=== PATIENT | male | born 1955 | race Caucasian/White ===

== ENCOUNTER 2018-03-21 17:29 | Inpatient (IN) | payer MEDICAID, OTHER ==
[2018-03-21] MEDS ORDERED: ALBUTEROL 3 ML DEYVIAL IH ONE ×3 (17:38→18:26)
[2018-03-21] MEDS ORDERED: methylPREDNISolone SOD SUCC 125 MG/2 ML VIAL IVP ONE (17:38)
--- NOTE | 2018-03-21 17:38 | EDPHY ---
H & P Time Seen by Provider: 03/21/18 17:36 HPI/ROS: CHIEF COMPLAINT: Shortness of breath HISTORY OF PRESENT ILLNESS: History of COPD and bypass surgery and artificial valve on warfarin comes in with a chest cold which then became much more short of breath over the past 2 days. Associated with tightness in his bilateral lower chest and a cough which is nonproductive. Symptoms severe and he was 70% oxygen saturation by [place] Now is 98% on 4 L nasal cannula. He only uses oxygen at home when he needs it but not all the time. Today symptoms started worsening when he was mowing the lawn this afternoon. REVIEW OF SYSTEMS: Eye: no change in vision ENT: no sore throat, little bit of left jaw pain Cardiac: HPI no palpitations or syncope Pulmonary: HPI Abdomen: no vomiting, diarrhea, abdominal pain Musculoskeletal: no back pain Skin: no rash Neuro: no headache Constitutional: no fever : no urinary symptoms A comprehensive 10 point review of systems is otherwise negative aside from elements mentioned in the history of present illness. PAST MEDICAL HISTORY: Includes COPD, cardiac bypass with valve replacement on warfarin, pacemaker Social history: [place] patient, Dr. Lexis mata General Appearance: Alert and conversant, cooperative. Eyes: No scleral icterus. ENT, Mouth: Normal mucous membranes. No dental tenderness. Respiratory: Bilateral expiratory wheezing with prolonged expiratory phase, speaks in full sentences. Cardiovascular: Regular rate and rhythm. Valve sound heard. Gastrointestinal: Abdomen is soft and non tender. Neurological: Alert, face symmetric, normal motor and sensory in extremities. Skin: Warm and dry, no rashes. Musculoskeletal: No peripheral edema. Psychiatric: Not agitated. Emergency Department course/MDM: Duoneb given by EMS; additional albuterol neb and 125 mg IV Solu-Medrol. Chest x-ray does not show pneumonia. EKG does not show ischemia. INR is elevated and I think pulmonary embolism would therefore be unlikely. 1818: Odilia from [place] [facility] admit at [facility] no transfer. Admit [facility] for acute COPD exacerbation with hypoxemia. 182: Transient hypotension which resolved spontaneously. Re-examined at this time is in good spirits and feels better. Still very wheezy. Additional albuterol neb. Saturation in the 90s on nasal cannula supplemental oxygen. Constitutional: Initial Vital Signs Temperature (C) 37.1 C 03/21/18 17:29 Heart Rate 79 03/21/18 17:29 Respiratory Rate 30 H 03/21/18 17:29 Blood Pressure 107/67 03/21/18 17:29 O2 Sat (%) 78 L 03/21/18 17:29 O2 Delivery Mode Nasal Cannula O2 (L/minute) 3 Allergies/Adverse Reactions: No Known Allergies Allergy (Unverified 03/21/18 18:03) Home Medications: Medication Instructions Recorded Atorvastatin Calcium [Lipitor 40 40 mg PO HS 03/21/18 mg (*)] Docusate Sodium [Colace 100 MG (*)] 100 mg PO HS 03/21/18 Dofetilide [Tikosyn 0.5 MG (*)] 0.5 mg PO BID 03/21/18 Furosemide [Lasix 40 MG (*)] 80 mg PO BIDDIUR 03/21/18 Metoprolol Succinate Xr [Toprol Xl 25 mg PO HS 03/21/18 25 mg (*)] Mometasone/Formoterol [Dulera 100 13 gm IH BID 03/21/18 Mcg/5 Mcg Inhaler] Multivitamins [Multivitamin (*)] 1 each PO HS 03/21/18 Omeprazole 20 mg PO HS 03/21/18 Potassium Chloride [Klor-Con 10] 20 meq PO BIDDIUR 03/21/18 Tiotropium Inhaler [Spiriva 1 inh IH DAILY 03/21/18 Inhaler] Warfarin Sodium [Coumadin 2.5MG 3.75 mg PO MOTUTHFRSA@03/21/18 (*)] Warfarin Sodium [Coumadin 2.5MG 5 mg PO SUWE@03/21/18 (*)] Medical Decision Making - Diagnostics EKG Interpretation: 12-lead EKG interpreted by me; official reading is in trace master. My interpretation is sinus rhythm with intraventricular conduction delay and late anterior RS transition. Imaging Results: Imaging Impressions Chest X-Ray 03/21/18 17:38 Impression: Chronic congestive heart failure with underlying emphysema.. Imaging: I viewed and interpreted images myself Differential Diagnosis: Differential diagnosis considered for shortness of breath including but not limited to pulmonary infectious process, COPD, asthma, pulmonary embolus and congestive heart failure. Consult/Admit Bed Type: [facility] 1821 Critical Care Time: Critical care time spent by me, Dr. Salgado, exclusively with the care of this patient was 30 minutes, exclusive of PA or SENIOR PARTNER time and exclusive of separate procedures. The organ system at risk was pulmonary and I ordered serial examinations, nebulizer medications, IV steroids, supplemental oxygen to stabilize the patient and prevent worsening of the patient's condition. - Data Points Laboratory Results: Laboratory Results 03/21/18 17:35 03/21/18 17:35 03/21/18 03/21/18 03/21/18 17:46 17:35 17:35 WBC RBC Hgb Hct MCV MCH MCHC RDW Plt Count MPV Neut % (Auto) Lymph % (Auto) Baker % (Auto) Eos % (Auto) Baso % (Auto) Nucleat RBC Rel Count Absolute Neuts (auto) Absolute Lymphs (auto) Absolute Monos (auto) Absolute Eos (auto) Absolute Basos (auto) Absolute Nucleated RBC Immature Gran % Immature Gran # PT 29.0 SEC H SEC (12.0-15.0) INR 2.75 H (0.83-1.16) APTT 43.5 SEC H SEC (23.0-38.0) Sodium 132 mEq/L L mEq/L (135-145) Potassium 4.2 mEq/L mEq/L (3.3-5.0) Chloride 91 mEq/L L mEq/L (97-110) Carbon Dioxide 29 mEq/l mEq/l (22-31) Anion Gap 12 mEq/L mEq/L (8-16) BUN 29 mg/dL H mg/dL (7-23) Creatinine 1.0 mg/dL mg/dL (0.7-1.3) Estimated GFR > 60 Glucose 84 mg/dL mg/dL (70-100) Calcium 9.0 mg/dL mg/dL (8.5-10.4) POC Troponin I 0.02 ng/mL ng/mL (0.00-0.08) 03/21/18 17:35 WBC 11.43 10^3/uL H 10^3/uL (3.80-9.50) RBC 4.71 10^6/uL 10^6/uL (4.40-6.38) Hgb 16.0 g/dL g/dL (13.7-17.5) Hct 45.8 % % (40.0-51.0) MCV 97.2 fL fL (81.5-99.8) MCH 34.0 pg pg (27.9-34.1) MCHC 34.9 g/dL g/dL (32.4-36.7) RDW 14.0 % % (11.5-15.2) Plt Count 168 10^3/uL 10^3/uL (150-400) MPV 10.2 fL fL (8.7-11.7) Neut % (Auto) 75.9 % H % (39.3-74.2) Lymph % (Auto) 12.9 % L % (15.0-45.0) Baker % (Auto) 10.1 % % (4.5-13.0) Eos % (Auto) 0.4 % L % (0.6-7.6) Baso % (Auto) 0.4 % % (0.3-1.7) Nucleat RBC Rel Count 0.0 % % (0.0-0.2) Absolute Neuts (auto) 8.66 10^3/uL H 10^3/uL (1.70-6.50) Absolute Lymphs (auto) 1.48 10^3/uL 10^3/uL (1.00-3.00) Absolute Monos (auto) 1.15 10^3/uL H 10^3/uL (0.30-0.80) Absolute Eos (auto) 0.05 10^3/uL 10^3/uL (0.03-0.40) Absolute Basos (auto) 0.05 10^3/uL 10^3/uL (0.02-0.10) Absolute Nucleated RBC 0.00 10^3/uL 10^3/uL (0-0.01) Immature Gran % 0.3 % % (0.0-1.1) Immature Gran # 0.04 10^3/uL 10^3/uL (0.00-0.10) PT INR APTT Sodium Potassium Chloride Carbon Dioxide Anion Gap BUN Creatinine Estimated GFR Glucose Calcium POC Troponin I Medications Given: Discontinued Medications Albuterol (Proventil Neb) 3 ml IH EDNOW ONE Stop: 03/21/18 17:39 Last Admin: 03/21/18 17:59 Dose: 3 ml Albuterol (Proventil Neb) 3 ml IH EDNOW ONE Stop: 03/21/18 18:27 Last Admin: 03/21/18 18:29 Dose: 3 ml Albuterol (Proventil Neb) 3 ml IH EDNOW ONE Stop: 03/21/18 18:26 Last Admin: 03/21/18 18:30 Dose: Not Given Methylprednisolone Sodium Succinate (Solu-Medrol) 125 mg IVP EDNOW ONE Stop: 03/21/18 17:39 Last Admin: 03/21/18 17:59 Dose: 125 mg Point of Care Test Results: Chemistry 03/21/18 17:46 POC Troponin I 0.02 ng/mL ng/mL (0.00-0.08) Departure - Departure Disposition: [facility] Inpatient Acute Clinical Impression: Chronic obstructive pulmonary disease with acute exacerbation Condition: Fair
[2018-03-21 17:55] LABS: PLATELET COUNT 168 10^3/uL (150-400)
[2018-03-21 18:05] LABS: INR 2.75 (0.83-1.16)
--- NOTE | 2018-03-21 18:14 | CPEKG ---
Heart Rate: 70 RR Interval: 857 P-R Interval: 180 QRSD Interval: 140 QT Interval: 436 QTC Interval: 471 QRS Ellenton: -64 T Wave Ellenton: 64 EKG Severity - ABNORMAL ECG - EKG Impression: SINUS RHYTHM EKG Impression: NONSPECIFIC IVCD WITH LAD EKG Impression: CONSIDER ANTERIOR INFARCT Electronically Signed By: Mark Salgado 21-Mar-2018 18:14:12
[2018-03-21] MEDS ORDERED: PROMETHAZINE HCL 25 MG/ML INJ IVP PRN (18:29)
[2018-03-21] MEDS ORDERED: ACETAMINOPHEN 325 MG TAB PO PRN (18:29)
[2018-03-21] MEDS ORDERED: ALBUTEROL 3 ML DEYVIAL IH PRN (18:29)
[2018-03-21] MEDS ORDERED: ONDANSETRON DISINTEGRATING 4 MG TAB PO PRN (18:29)
[2018-03-21] MEDS ORDERED: ONDANSETRON 4 MG/2 ML VIAL IVP PRN (18:29)
[2018-03-21] MEDS ORDERED: HYDROCODONE/APAP 5/325 TAB PO PRN (18:29)
[2018-03-21] MEDS ORDERED: oxyCODONE IR 5 MG TAB PO PRN (18:29)
[2018-03-21] MEDS ORDERED: WARFARIN SODIUM 2.5 MG TAB PO SCH ×2 (21:00→22:15)
[2018-03-21] MEDS: IPRATROPIUM/ALBUTEROL 3 ML DEYVIAL IH SCH (21:11)
[2018-03-21] MEDS ORDERED: DOCUSATE SODIUM 100 MG CAP PO SCH (21:15)
[2018-03-21] MEDS ORDERED: PANTOPRAZOLE SODIUM 40 MG TAB PO SCH (21:15)
[2018-03-21] MEDS ORDERED: METOPROLOL SUCCINATE XR 25 MG TAB PO SCH (21:15)
[2018-03-21] MEDS ORDERED: ATORVASTATIN CALCIUM 40 MG TAB PO SCH (21:15)
[2018-03-21] MEDS ORDERED: guaiFENesin/CODEINE PHOS 10 ML UDCUP PO PRN (21:22)
[2018-03-21] MEDS ORDERED: WARFARIN SODIUM 5 MG TAB PO SCH (21:45)
[2018-03-21] MEDS: AZITHROMYCIN IV 500 MG in NS 250 ML IV SCH (22:13)
[2018-03-21] MEDS: METOPROLOL SUCCINATE XR 25 MG TAB PO SCH (22:26)
[2018-03-21] MEDS: ATORVASTATIN CALCIUM 40 MG TAB PO SCH (22:27)
[2018-03-21] MEDS: OMEPRAZOLE 20 MG PO SCH (22:28)
[2018-03-21] MEDS: DOCUSATE SODIUM 250 MG PO SCH (22:29)
[2018-03-21] MEDS: DOFETILIDE 0.5 MG CAP PO SCH (22:29)
--- NOTE | 2018-03-21 22:35 | GHP ---
[f rep st] HISTORY AND PHYSICAL DATE OF ADMISSION: 03/21/2018 CHIEF COMPLAINT: Shortness of breath and cough. 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 He notes this initially started with what he thought was a head cold. He has had chills, but no fevers. He h as had some sputum production, but it has largely been clear or white in color. He notes that he has been coughing so hard that he has abdominal pain now with coughing. He was around someone sick with pneumonia recently. He denies any chest pain. He denies any increased swelling in his lower extrem ities. He is followed by Cardiology at [facility]. PAST MEDICAL HISTORY: Includes: 1. Severe COPD. 2. Chronic hypoxic respiratory failure, on 2 L of oxygen at night. 3. 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 4. Valvular heart disease with history of congenitally abnormal aortic valve, status post replacemen t and revision with a mechanical valve. 5. Atrial fib/flutter. 6. Alcohol abuse, reportedly in remission. 7. Chronic kidney disease, stage 3. 8. William esophagus. PAST SURGICAL HISTORY: Includes: 1. Atrial valve replacement and revision. 2. Permanent pacemaker/AICD placement. 3. Inguinal hernia repair. 4. Tonsillectomy. FAMILY HISTORY: Negative for any coronary disease. SOCIAL HISTORY: The patient has a 40+ pack-year smoking history, but states he quit smoking 2 months ago. Previously heavy alcohol abuse, but also states he has been off alcohol for a couple of years. He is currently unemployed. REVIEW OF SYSTEMS: A 10-point review of systems obtained and negative except as per HPI. HOME MEDICATIONS: Include: 1. Spiriva. 2. Atorvastatin. 3. Multivitamin. 4. Metoprolol. 5. Docusate. 6. Omeprazole. 7. Tikosyn. 8. Lasix. 9. Potassium. 10. Warfarin. 11. Dulera. ALLERGIES: No known drug allergies. PHYSICAL EXAM: VITAL SIGNS: BP 97/55, heart rate 70, respiratory rate 17, O2 sats 91% on 3 L, tempe rature is 36.9. GENERAL APPEARANCE: This is a chronically ill-appearing male. He is awake and aler t. He is in no acute distress. EYES: Anicteric. HENT: Oropharynx clear. CARDIOVASCULAR: Mechan ical heart sounds present, otherwise unremarkable. PULMONARY: Decreased breath sounds throughout. There is scattered expiratory wheeze. ABDOMEN: Soft, nontender, nondistended. EXTREMITIES: No clu bbing, cyanosis, or edema. SKIN: Warm, dry, well perfused. NEURO/PSYCH: Oriented and appropriate, pleasant. CLINICAL DATA: Labs reviewed. Notable for a sodium of 132, creatinine is 1.0. Troponin is 0.02. I NR is 2.75. White blood cell count of 11.4. EKG, personally reviewed and interpreted, shows sinus rhythm. There is a nonspecific interventricula r conduction delay with LAD. Chest x-ray, personally reviewed and interpreted, shows chronic CHF as well as emphysema. No focal i nfiltrate. ASSESSMENT/PLAN: This is a 63-year-old man, past medical history of chronic obstructive pulmonary di sease, congestive heart failure, valvular heart disease, atrial fibrillation/flutter presenting with shortness of breath, cough, and wheeze most consistent with acute exacerbation of chronic obstructive pulmonary disease. 1. Acute chronic obstructive pulmonary disease exacerbation. Patient has been given IV steroids in the emergency department. He has been started on scheduled DuoNebs and albuterol nebulizers p.r.n. We will transition to oral prednisone in the morning. We will start azithromycin as well and obtain a respiratory viral PCR panel as well. 2. Kgjnu-yh-bgmdhoa hypoxic respiratory failure at baseline. Utilizing oxygen only at night, natacha hughes requiring 3 L to maintain O2 sats in the mid 90s. He was 78% on room air on arrival. Suspect th is is secondary to above but, given his heart history, difficult to exclude contribution of congestiv e heart failure. In review of his records on [facility], it does not appear that he has had an echocardi ogram for at least 1 year, so will obtain an echocardiogram in the morning. His last ejection fracti on noted to be 30% to 35% with his aortic valve appearing to function well at that time. 3. Atrial fibrillation/flutter. We will continue his outpatient medications, including Tikosyn and metoprolol. We will monitor on telemetry overnight. 4. Valvular heart disease with mechanical aortic valve and history of congenital aortic valve diseas e. He is on warfarin with goal INR 2.5 to 3.5 and currently in therapeutic range. We will ask pharm acy to manage warfarin while inhouse, given addition of medications which could affect his INR. 5. Chronic systolic heart failure. This is a mixed ischemic and nonischemic process with a dilated cardiomyopathy present as well as ischemic cardiomyopathy and most recent ejection fraction of 30% to 35%. He does not appear grossly volume overloaded at this time; however, with increased O2 requirem ents and congestive heart failure noted on chest x-ray, this certainly may be contributing. Again, w e will obtain an echocardiogram in the morning for further evaluation. We will continue his home dos e of Lasix which is 80 b.i.d. for the time being. 6. History of William esophagus. We will continue his proton pump inhibitor. DISPOSITION: Inpatient status. Given complex medical decision making and multiple active issues, azul spect he will need greater than 48-hour stay for evaluation and management of above. Patient is new to my care. Old records reviewed, including records found on [facility]. Care plan revie wed with ER physician, including plans for treatment of COPD exacerbation. /[id number]/MODL
[2018-03-22 04:59] LABS: INR 3.6 (0.83-1.16); PROTIME(PATIENT) 35.6 SEC (12.0-15.0)
[2018-03-22] MEDS: IPRATROPIUM/ALBUTEROL 3 ML DEYVIAL IH SCH ×4 (05:51→21:41)
[2018-03-22] MEDS: FUROSEMIDE 40 MG TAB PO SCH ×2 (08:04→15:05)
[2018-03-22] MEDS: guaiFENesin 600 MG TAB.ER PO SCH ×2 (08:04→20:43)
[2018-03-22] MEDS: POTASSIUM CL 10 MEQ TAB PO SCH ×2 (08:05→15:06)
[2018-03-22] MEDS: DOFETILIDE 0.5 MG CAP PO SCH ×2 (08:06→20:45)
[2018-03-22] MEDS: predniSONE 20 MG TAB PO SCH (08:14)
[2018-03-22] MEDS: OMEPRAZOLE 20 MG PO SCH (08:17)
[2018-03-22] MEDS ORDERED: ENOXAPARIN 40 MG/0.4 ML SYR SC SCH (09:00)
[2018-03-22] MEDS ORDERED: PERFLUTREN LIPID MICROSPHERES 1.1 MG/ML VIAL IV ONE (09:02)
--- NOTE | 2018-03-22 13:04 | ECHO ---
[email or web address] [address] [address] Main: [phone] Fax: [email or web address] Echocardiogram Name: GILDA CLEMENS MR#: [id number] Study Date: 03/22/2018 Study Time: 08:41 AM Date of : 1955 Age: 63 year(s) Height: ( ) Weight: ( ) BSA: Gender: Male Examination: Echo Indication: HX OF CHF, HYPOXIC RESPIRATORY FAILURE Image Quality: Adequate Contrast: Requested by: Marques Kingston BP: / Heart Rate: Rhythm: Indication: HX OF CHF, HYPOXIC RESPIRATORY FAILURE Procedure Staff Exhibit Specialist: Joseline Hale [facility] Reading Physician: Porfirio Shea MD Requesting Provider: Conclusions: Normal size left ventricle. No LV hypertrophy. The ejection fraction is visually estimated to be 45 %. Finlayson appears hypokinetic. Definity was used. There appears to be swirling of contrast in apex indicating slow movement of blood. Normal size right ventricle. Left atrial enlargement. Moderate to severe mitral regurgitation. The aortic valve is a mechanical prosthesis.. Normal functioning aortic valve prosthesis. The prosthetic aortic valve is normal. Mild prosthesis regurgitation. Moderate tricuspid regurgitation is present. The pulmonary artery pressure is mildly increased. There is no pulmonic regurgitation seen. Normal size ascending aorta measuring 2.6 cm. Measurements: Chambers Valvular Assessment AV/MV Valvular Assessment TV/PV Normal Normal Normal Name Value Range Name Value Range Name Value Range Ao Susannah (2D): 2.9 cm (1.4 cm-2.6 AV Vmax: 2.30 m/s (1 m/s-1.7 TR Vmax: 3.00 mm/s ( - ) cm) m/s) TR PGmax: 36 mmHg ( - ) IVSd (2D): 1.1 cm (0.6 cm-1.1 AV maxP mmHg ( - ) syst. PAP: 41 mmHg ( - ) cm) AV meanP mmHg ( - ) PV Vmax: 0.91 m/s (0.6 m/s-0.9 LVDd (2D): 5.8 cm (4.2 cm-5.9 VANDA (VTI): 1.0 cm ( - ) m/s) cm) MV E Vmax: 1.40 m/s ( - ) PV PGmax: 3 mmHg ( - ) LVDs (2D): 4.4 cm (2.1 cm-4 MV A Vmax: 0.86 m/s ( - ) cm) MV E/A: 1.63 ( - ) Patient: GILDA CLEMENS Study Date: 03/22/2018 Page 1 of 3 08:41 AM LVPWd (2D): 1.0 cm (0.6 cm-1 MV meanP mmHg ( - ) cm) MV PHT: 0.057 s ( - ) LVOTd 1.8 cm 1.8 cm mm MVA (Vmax): 0.3 m/s ( - ) LVEF (2D): 49 (>=54 %) MVA (PHT): 3.9 s ( - ) Visual EF: 45 % RVDd(2D): 3.4 cm (1.9 cm-3.8 cmmm) Continued Measurements: Chambers Valvular Assessment AV/MV Valvular Assessment TV/PV Name Value Name Value Name Value LADs: 5.3 cm MV DecTime: 190 m/s CVP (est.): 5 mmHg LADs Lon.1 cm MV E' Septal: 0.07 m/s LA Area: 27.3 cm2 MV E/E' Septal: 20.50 LA Volume: 108 ml MV E/E' Lateral: 13.60 RA Area: 27.6 cm2 MV VTI: 139.00 cm MR PISA radius: 13 mm Additional Vessels Name Value Ao Ascendin.6 cm Inferior Vena Cava: 2.6 cm Findings: Left Ventricle: Normal size left ventricle. No LV hypertrophy. The ejection fraction is visually estimated to be 45 %. No regional wall motion abnormality. Normal diastolic LV function. Finlayson appears hypokinetic. Definity was used. There appears to be swirling of contrast in apex indicating slow movement of blood. Right Ventricle: Normal size right ventricle. Normal RV function. There is a pacemaker lead noted in the right ventricle. Left Atrium: Left atrial enlargement. Right Atrium: The right atrium is normal in size. Mitral Valve: The mitral valve is normal in appearance and function. Moderate to severe mitral regurgitation. No mitral stenosis is present. Aortic Valve: The aortic valve is a mechanical prosthesis.. Normal functioning aortic valve prosthesis. The prosthetic aortic valve is normal. Mild prosthesis regurgitation. Tricuspid Valve: The tricuspid valve is normal in appearance and function. Moderate tricuspid regurgitation is present. The pulmonary artery pressure is mildly increased. Pulmonic Valve: The pulmonic valve is normal in appearance and function. There is no pulmonic regurgitation seen. Aorta: The aorta is normal. Normal size aortic root measuring 2.9 cm. Normal size ascending aorta measuring 2.6 cm. IVC: The IVC is dilated. Pericardium: No pericardial effusion. No pleural effusion. (No Signature Object) Patient: GILDA CLEMENS Study Date: 03/22/2018 Page 2 of 3 08:41 AM Patient: GILDA CLEMENS Study Date: 03/22/2018 Page 3 of 3 08:41 AM [id number]
--- NOTE | 2018-03-22 13:37 | ASMTCMCOM ---
CM Note CM Note Notes: Pt lives alone in [place], sister coming today to visit. DC needs uncertain, CM w/f. DC Plan: TBD Date Signed: 03/22/2018 01:36 PM Electronically Signed By:Donna Gonzáles RN
--- NOTE | 2018-03-22 13:55 | PDMN ---
Medical Necessity Medical necessity: Pt meets IP criteria per MD & MCG M-100; est los> 2 mn for eval/tx severe COPD exacerbation & hypoxic respiratory failure (78% on RA); admit for further workup/monitoring, IV abx, Prednisone & respiratory supportive care; hx CHF, AFIB/flutter, CKD, valvular heart disease s/p MVR; per H&P & order 03/21/18
--- NOTE | 2018-03-22 14:12 | HOSPPROG ---
Hospitalist Progress Note Assessment/Plan: DIAGNOSES: * acute hypoxemic respiratory failure * acute COPD exacerbation caused by viral respiratory illness * parainfluenza virus infection * chronic hypoxemic respiratory failure and pulmonary hypertension, using nocturnal and intermittent daytime oxygen at home; [place] near 8000 [place] altitude * chronic heart disease with rate controlled AFib on anticoagulation, moderate to severe mitral regurgitation, reduced LV EF at 43% (previous 35%), apical hypokinesis, and mechanical aortic valve on anticoagulation, pacemaker in place ; absence of pulmonary edema at this time * stage 3 chronic kidney disease * recovering alcoholism There is some signs of improvement in this acute respiratory episode. This is clearly caused by a viral illness. The mainstay of therapy will be at this point additional steroids and bronchodilators over his usual. His mitral valve is now read as moderate to severe and I will review with Cardiology whether or not he should be looking at the possibility of mitral valve procedure at some point particularly as he does already have pulmonary hypertension. PLANS: * Continue high-dose steroid and bronchodilators * Continue his usual long-acting inhaled medicines * Increase activity as able * He is on chronic anticoagulation so was treated for DVT prophylaxis here * Continue his usual cardiac medicines * Will review his echocardiogram findings with Cardiology regarding his mitral valve SUBJECTIVE: Overnight he does feel somewhat better but is still fairly short of breath with some dyspnea at rest on oxygen. This is 2000 ft +lower than his house. 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: Exam: alert oriented skin warm dry color ok resps not labored lungs clear BSs heart regular abd soft nondistended nontender, bowel sounds present limbs warm, no edema iv site ok Laboratory data: INR 3.6 Microbiology data: PCR testing positive for parainfluenza virus Objective: Vital Signs Temp Pulse Resp BP Pulse Ox 36.5 C 66 18 87/50 L 98 03/22/18 11:43 03/22/18 11:46 03/22/18 11:46 03/22/18 12:25 03/22/18 11:46 Microbiology 03/21/18 22:40 Respiratory Panel (PCR) - Final Nasal, Sinus - Anaerobic Tube/Swab Parainfluenza Virus Type 3 03/21/18 03/22/18 03/23/18 06:59 06:59 06:59 Intake Total 500 Output Total 425 Balance 75 PT 35.6 SEC (12.0-15.0) H 03/22/18 04:30 INR 3.60 (0.83-1.16) H 03/22/18 04:30 ICD10 Worksheet Patient Problems: Problems Problem Status Onset Chronic obstructive pulmonary disease with acute exacerbation Acute
--- NOTE | 2018-03-22 15:02 | ASMTLACE ---
CASEY Acuity / Level of Answers: Yes Care: Did the patient have an inpatient admission? Comorbidities - select Answers: Chronic pulmonary disease all that apply Congestive heart failure Other Notes: Pacemaker; CKD # of Emergency department Answers: 1-2 visits in the last 6 months Social determinants Answers: History of substance abuse (ETOH, street drugs, prescription drugs, etc.) Score: 12 Date Signed: 03/22/2018 03:01 PM Electronically Signed By:Jannie Gil
[2018-03-22] MEDS: Mometasone/Formoterol [Dulera 100 Mcg/5 Mcg Inhaler] IH SCH ×2 (15:46→21:51)
[2018-03-22] MEDS: TIOTROPIUM INHALER 18 MCG/DOSE 5 DOSE/MDI IH SCH (15:46)
[2018-03-22] MEDS: METOPROLOL SUCCINATE XR 25 MG TAB PO SCH (20:43)
[2018-03-22] MEDS: DOCUSATE SODIUM 250 MG PO SCH (20:44)
[2018-03-22] MEDS: ATORVASTATIN CALCIUM 40 MG TAB PO SCH (20:45)
[2018-03-22] MEDS: AZITHROMYCIN IV 500 MG in NS 250 ML IV SCH (20:46)
[2018-03-22] MEDS ORDERED: WARFARIN SODIUM 2.5 MG TAB PO SCH ×2 (21:00)
[2018-03-22] MEDS: MULTIVITAMINS 1 EACH TAB PO SCH (22:44)
[2018-03-23] MEDS: IPRATROPIUM/ALBUTEROL 3 ML DEYVIAL IH SCH ×4 (05:48→21:10)
[2018-03-23 05:57] LABS: INR 5.52 (0.83-1.16); PROTIME(PATIENT) 49.4 SEC (12.0-15.0)
[2018-03-23] MEDS: TIOTROPIUM INHALER 18 MCG/DOSE 5 DOSE/MDI IH SCH (08:59)
[2018-03-23] MEDS: OMEPRAZOLE 20 MG PO SCH ×2 (09:00→09:25)
[2018-03-23] MEDS: Mometasone/Formoterol [Dulera 100 Mcg/5 Mcg Inhaler] IH SCH ×2 (09:00→21:11)
[2018-03-23] MEDS: POTASSIUM CL 10 MEQ TAB PO SCH ×2 (09:20→15:07)
[2018-03-23] MEDS: guaiFENesin 600 MG TAB.ER PO SCH ×2 (09:21→20:46)
[2018-03-23] MEDS: DOFETILIDE 0.5 MG CAP PO SCH ×2 (09:21→20:46)
[2018-03-23] MEDS: FUROSEMIDE 40 MG TAB PO SCH ×2 (09:22→15:07)
[2018-03-23] MEDS: predniSONE 20 MG TAB PO SCH (09:22)
--- NOTE | 2018-03-23 09:33 | ASMTCMCOM ---
CM Note CM Note Notes: Spoke w/RN, pt will be here for a few more days, but will dc home independent when medically stable. CM available for any changes. DC Plan: Independent Date Signed: 03/23/2018 09:32 AM Electronically Signed By:Donan Gonzáles RN
--- NOTE | 2018-03-23 10:49 | HOSPPROG ---
Hospitalist Progress Note Assessment/Plan: DIAGNOSES: * acute hypoxemic respiratory failure * acute COPD exacerbation caused by viral respiratory illness * parainfluenza virus infection * chronic hypoxemic respiratory failure and pulmonary hypertension, using nocturnal and intermittent daytime oxygen at home; [place] near [place] * chronic heart disease with rate controlled AFib on anticoagulation, moderate to severe mitral regurgitation, reduced LV EF at 43% (previous 35%), apical hypokinesis, and mechanical aortic valve on anticoagulation, pacemaker in place ; absence of pulmonary edema at this time * excessive anticoagulation * stage 3 chronic kidney disease * recovering alcoholism PLANS: * Continue high-dose steroid and bronchodilators * Continue his usual long-acting inhaled medicines * Increase activity as able * He is on chronic anticoagulation so was treated for DVT prophylaxis here * Continue his usual cardiac medicines * Will review his echocardiogram findings with Cardiology regarding his mitral valve * Continue to hold Coumadin follow daily INRs and resume when back in therapeutic range At this time the patient is still quite impaired in terms of his ability to ambulate due to his acute illness. [place] for [place], and at this time there [place] with significant decrease in air quality with high particulates. I do not think he would do well at home at this time will need continue treating him here to get him back close to his baseline before trying to return home. Hopefully the air quality will be able to improve before he returns home SUBJECTIVE: Little change between yesterday and today. 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: Exam: alert oriented skin warm dry color ok resps not labored lungs very diminished with some expiratory wheezing bilaterally and prolonged expiration heart regular abd soft nondistended nontender, bowel sounds present limbs warm, no edema iv site ok Laboratory data: INR higher at 5.5 Microbiology data: PCR testing positive for parainfluenza virus Objective: Vital Signs Temp Pulse Resp BP Pulse Ox 36.4 C 6 L 19 97/61 L 98 03/23/18 07:35 03/23/18 09:00 03/23/18 09:00 03/23/18 07:35 03/23/18 09:00 Microbiology 03/21/18 22:40 Respiratory Panel (PCR) - Final Nasal, Sinus - Anaerobic Tube/Swab Parainfluenza Virus Type 3 03/22/18 03/23/18 03/24/18 06:59 06:59 06:59 Intake Total 500 3500 350 Output Total 425 825 Balance 75 2675 350 PT 49.4 SEC (12.0-15.0) H 03/23/18 04:13 INR 5.52 (0.83-1.16) H* 03/23/18 04:13 ICD10 Worksheet Patient Problems: Problems Problem Status Onset Chronic obstructive pulmonary disease with acute exacerbation Acute
[2018-03-23] MEDS: MULTIVITAMINS 1 EACH TAB PO SCH (20:46)
[2018-03-23] MEDS: ATORVASTATIN CALCIUM 40 MG TAB PO SCH (20:46)
[2018-03-23] MEDS: DOCUSATE SODIUM 250 MG PO SCH (20:47)
[2018-03-23] MEDS: METOPROLOL SUCCINATE XR 25 MG TAB PO SCH (20:48)
[2018-03-24 05:24] LABS: INR 4.85 (0.83-1.16); PROTIME(PATIENT) 44.7 SEC (12.0-15.0)
[2018-03-24] MEDS: IPRATROPIUM/ALBUTEROL 3 ML DEYVIAL IH SCH ×4 (06:28→20:26)
[2018-03-24] MEDS: FUROSEMIDE 40 MG TAB PO SCH ×2 (09:17→15:06)
[2018-03-24] MEDS: POTASSIUM CL 10 MEQ TAB PO SCH ×2 (09:18→15:07)
[2018-03-24] MEDS: DOFETILIDE 0.5 MG CAP PO SCH ×2 (09:19→20:06)
[2018-03-24] MEDS: Mometasone/Formoterol [Dulera 100 Mcg/5 Mcg Inhaler] IH SCH ×2 (09:23→20:26)
[2018-03-24] MEDS: TIOTROPIUM INHALER 18 MCG/DOSE 5 DOSE/MDI IH SCH (09:23)
[2018-03-24] MEDS: OMEPRAZOLE 20 MG PO SCH (09:50)
[2018-03-24] MEDS: predniSONE 20 MG TAB PO SCH (09:50)
[2018-03-24] MEDS: guaiFENesin 600 MG TAB.ER PO SCH ×2 (09:50→20:06)
--- NOTE | 2018-03-24 18:10 | HOSPPROG ---
Hospitalist Progress Note Assessment/Plan: DIAGNOSES: * acute hypoxemic respiratory failure * acute COPD exacerbation caused by viral respiratory illness * parainfluenza virus infection * chronic hypoxemic respiratory failure and pulmonary hypertension, using nocturnal and intermittent daytime oxygen at home; lives near [place] altitude * chronic heart disease with rate controlled AFib on anticoagulation, moderate to severe mitral regurgitation, reduced LV EF at 43% (previous 35%), apical hypokinesis, and mechanical aortic valve on anticoagulation, pacemaker in place ; absence of pulmonary edema at this time * overall very low blood pressures here which he is tolerating well, may be due to combination of his medicines and his mitral regurg and pulmonary hypertension * excessive anticoagulation * Remains elevated to need a continue off anticoagulation for now * stage 3 chronic kidney disease * recovering alcoholism Continued improvement but will need at least 1 more day with further improvement before were able to send him back to [place] PLANS: * Continue high-dose steroid and bronchodilators * Continue his usual long-acting inhaled medicines * Increase activity as able * He is on chronic anticoagulation so was treated for DVT prophylaxis here * Continue his usual cardiac medicines * He should make an appointment with his [employer] floorperson to review his moderate to severe mitral regurgitation and pulmonary hypertension in the somewhat near future. Additionally they should discuss that he is not on an angiotensin related medicine - at present his blood pressures are too low to consider adding that at this time, but would see what his blood pressures are when he is in the outpatient setting and consider trying to add low-dose unless there was some other reason he is not receiving that medicine * Continue to hold Coumadin follow daily INRs and resume when back in therapeutic range SUBJECTIVE: Some improvement from yesterday but still fairly winded walking in the hallways here and has to stop and rest correction down the hallway to catch breath OBJECTIVE Vitals reviewed: Moderately hypotensive unchanged from past few days but otherwise stable vital signs without fever 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, 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: Exam: alert oriented skin warm dry color ok resps not labored lungs very diminished with some expiratory wheezing bilaterally and prolonged expiration heart regular abd soft nondistended nontender, bowel sounds present limbs warm, no edema iv site ok Laboratory data: INR still high at 4.8 Microbiology data: PCR testing positive for parainfluenza virus Objective: Vital Signs Temp Pulse Resp BP Pulse Ox 36.8 C 77 16 93/53 L 87 L 03/24/18 15:34 03/24/18 16:04 03/24/18 15:34 03/24/18 15:34 03/24/18 16:04 03/23/18 03/24/18 03/25/18 06:59 06:59 06:59 Intake Total 3500 1300 Output Total 825 1800 Balance 2675 -500 PT 44.7 SEC (12.0-15.0) H 03/24/18 04:15 INR 4.85 (0.83-1.16) H 03/24/18 04:15 ICD10 Worksheet Patient Problems: Problems Problem Status Onset Chronic obstructive pulmonary disease with acute exacerbation Acute
[2018-03-24] MEDS: METOPROLOL SUCCINATE XR 25 MG TAB PO SCH (20:00)
[2018-03-24] MEDS: MULTIVITAMINS 1 EACH TAB PO SCH (20:06)
[2018-03-24] MEDS: ATORVASTATIN CALCIUM 40 MG TAB PO SCH (20:06)
[2018-03-24] MEDS: DOCUSATE SODIUM 250 MG PO SCH (20:07)
[2018-03-25 05:55] LABS: INR 3.13 (0.83-1.16)
[2018-03-25] MEDS: IPRATROPIUM/ALBUTEROL 3 ML DEYVIAL IH SCH ×2 (06:00→11:27)
[2018-03-25] MEDS: predniSONE 20 MG TAB PO SCH (08:14)
[2018-03-25] MEDS: POTASSIUM CL 10 MEQ TAB PO SCH (08:14)
[2018-03-25] MEDS: FUROSEMIDE 40 MG TAB PO SCH (08:14)
[2018-03-25] MEDS: guaiFENesin 600 MG TAB.ER PO SCH (08:14)
[2018-03-25] MEDS: DOFETILIDE 0.5 MG CAP PO SCH (08:16)
[2018-03-25] MEDS: OMEPRAZOLE 20 MG PO SCH (08:17)
[2018-03-25] MEDS: TIOTROPIUM INHALER 18 MCG/DOSE 5 DOSE/MDI IH SCH (09:20)
[2018-03-25] MEDS: Mometasone/Formoterol [Dulera 100 Mcg/5 Mcg Inhaler] IH SCH (09:20)
--- NOTE | 2018-03-25 10:35 | PDDCSUM ---
Discharge Summary Discharge Summary: DISCHARGE DIAGNOSES: * acute hypoxemic respiratory failure * acute COPD exacerbation * acute respiratory infection with parainfluenza virus * pulmonary hypertension * compensated chronic heart disease with current echocardiogram showing moderate to severe mitral regurgitation, ejection fraction 45%, rate controlled atrial fibrillation with bioprosthetic aortic valve on anticoagulant * mildly excessive anticoagulation induced by medications during hospital stay PROCEDURES: Echocardiogram HOSPITAL COURSE SUMMARY: This patient with chronic heart and lung disease developed cough and fever symptoms which progressed to significant worsening of shortness of breath. He normally uses home oxygen primarily at night occasionally daytime use but was quite hypoxemic and short of breath even with oxygen at the time of admission. Notably he lives more than [address] [place] elevation that here. On assessment he was found to have parainfluenza virus but no evidence of infiltrates or pneumonia per se. He did not have any evidence of thoracic or peripheral volume overload so his heart disease was felt to be compensated. His atrial fibrillation was rate controlled. He was admitted the hospital treated with oxygen, nebulized bronchodilators, and prednisone. His response was somewhat gradual but at this time he is progressed to the point of being able to ambulate with ease in the hallways and not needing to stop to catch his breath or rest. He is using 1-2 L of oxygen to ambulate at this time. During his hospital stay there has been no decompensation of the heart disease. His INR did bump up a little bit probably due to prednisone and other factors related to his inpatient care. His Coumadin was held and his INR is now down to 3.5. Is felt that he can resume his usual Coumadin dosing and repeat his INR test this coming week during follow -up. He did have an echocardiogram here and findings included ejection fraction 45%, moderate to severe mitral regurgitation, no concerning findings for his bioprosthetic aortic valve, and mild pulmonary hypertension. His blood pressures ran fairly low with systolics mostly in the mid 80s to mid 90s throughout his hospital stay here. It is notable that he is on a beta-arnoldo for AFib but is not on an angiotensin receptor arnoldo or inhibitor. 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 Renal function has been good here. Also it is not clear whether his moderate to severe mitral regurgitation represents a progression of that leak. As he does have some decrease in ejection fraction and some pulmonary hypertension, it may be that he is progressing to a point where consideration for intervention for his valve or at least more frequent monitoring of his cardiac issues related to the valve is warranted. I have discussed all of this with the patient and recommended he have follow-up before terrible along with his tank insulator rubber. He can't remember at this moment when the next appointment is but I think probably within a couple of months is appropriate PENDING TEST RESULTS: None MEDICATION CHANGES: Addition of prednisone tapering dose currently at 20 mg for 1 week then 10 mg for 1 week FOLLOW-UP PLAN: To see Dr. Glover at [facility] this coming week, will need INR blood testing at that time in addition to assessing his respiratory status To see his [employer] tank [employer] rubber in the moderately near future to review question of need for inability is tolerate angiotensin related medication, management of mitral valve Greater than 35 minutes bedside and care coordination time today
[2018-03-25 12:17] VITALS: BP 103/61
--- NOTE | 2018-03-25 12:23 | ASDISCHSUM ---
Discharge Information Plan Status:Home with No Needs Medically Cleared to Leave:03/25/2018 Discharge Date:03/25/2018 CM D/C Disposition:Home, Routine, Self-Care ADT D/C Disposition:Home, Routine, Self-Care Projected Discharge Date:03/25/2018 12:00 PM Transportation at D/C:Family Discharge Delay Reason: Follow-Up Date:03/25/2018 12:00 PM Discharge Slot: Final Diagnosis:Hypoxic Resp Failure, COPD exascerbation, Pulm HTN Placement Information Patient Contact Information Contact Name:LOUIS Relationship: Address: Work Phone: City: [facility] Phone: [facility] Code: Email: Financial Information Financial Class:HMO and PPO Plans Primary Plan Desc:[facility] Primary Plan Number:[id number] Secondary Plan Desc: Secondary Plan Number: Assessment Information LACE LACE Acuity / Level of Answers: Yes Care: Did the patient have an inpatient admission? Comorbidities - select Answers: Chronic pulmonary disease all that apply Congestive heart failure Other Notes: Pacemaker; CKD # of Emergency department Answers: 1-2 visits in the last 6 months Social determinants Answers: History of substance abuse (ETOH, street drugs, prescription drugs, etc.) Score: 12 Date Signed: 03/22/2018 03:01 PM Electronically Signed By:Jannie Gil [facility] CM Progress Note CM Note CM Note Notes: Pt lives alone in [place], sister coming today to visit. DC needs uncertain, CM w/f. DC Plan: TBD Date Signed: 03/22/2018 01:36 PM Electronically Signed By:Donna Gonzáles RN [facility] CM Progress Note CM Note CM Note Notes: Spoke w/RN, pt will be here for a few more days, but will dc home independent when medically stable. CM available for any changes. DC Plan: Independent Date Signed: 03/23/2018 09:32 AM Electronically Signed By:Donna Gonzáles RN Case Management Discharge Plan Note Case Management Discharge Discharge Order Complete? Answers: Yes Patient to Obtain Answers: Independently Medications Transportation Arranged Answers: Family/Friends Transport will Pick (Date 03/25/2018 01:00 PM & Time) Family Notified Answers: Yes Notes: Family to transport Discharge Comments Notes: Patient has been discharged home, no needs noted. Date Signed: 03/25/2018 12:22 PM Electronically Signed By:Roula Walter LCSW Intervention Information
== END 2018-03-25 13:27 | disposition home or self-care (01) | DRG 140 ==
LOC: EDUNIT# → OBSVTOIN 18:22 → INTOOBSV 18:22 → F3E 19:23
PROVIDERS: ADMIT Internal Medicine; ATTEND Internal Medicine
DX: J44.1 Chronic obstructive pulmonary disease with (acute) exacerbation (principal); J96.21 Acute and chronic respiratory failure with hypoxia; I27.20 Pulmonary hypertension, unspecified; J06.9 Acute upper respiratory infection, unspecified; B34.8 Other viral infections of unspecified site; I34.0 Nonrheumatic mitral (valve) insufficiency; I50.22 Chronic systolic (congestive) heart failure; I42.0 Dilated cardiomyopathy; I25.5 Ischemic cardiomyopathy; Q23.1 Congenital insufficiency of aortic valve; N18.3 Chronic kidney disease, stage 3 (moderate); R79.1 Abnormal coagulation profile; I48.91 Unspecified atrial fibrillation; K22.70 Barrett's esophagus without dysplasia; F10.21 Alcohol dependence, in remission; Z79.01 Long term (current) use of anticoagulants; Z87.891 Personal history of nicotine dependence; Z95.2 Presence of prosthetic heart valve; Z95.810 Presence of automatic (implantable) cardiac defibrillator; Z95.1 Presence of aortocoronary bypass graft
CPT/HCPCS: 84484-PO; 96374; J0456; J2930; J7512; J7613; Q9957